=== PATIENT | female | born 1965 | race Caucasian/White ===

== ENCOUNTER → 2023-10-03 15:39 | Outpatient (REF) | payer OTHER, SELFPAY | LOC: WDC 15:39 | PROVIDERS: ATTENDING PHYSICIAN Nurse Practitioner Family | DX: Z12.31 Encounter for screening mammogram for malignant neoplasm of breast (principal) | CPT/HCPCS: 77063; 77067 ==

== ENCOUNTER → 2024-10-05 15:52 | Outpatient (REF) | payer OTHER, SELFPAY | LOC: WDC 15:52 | PROVIDERS: ATTENDING PHYSICIAN Obstetrics & Gynecology; FAMILY PHYSICIAN Family Medicine | DX: Z12.31 Encounter for screening mammogram for malignant neoplasm of breast (principal) | CPT/HCPCS: 77063; 77067 ==

== ENCOUNTER → 2024-11-30 13:18 | Outpatient (REF) | payer OTHER, SELFPAY | LOC: RAD 13:18 | PROVIDERS: ATTENDING PHYSICIAN Family Medicine | DX: R59.0 Localized enlarged lymph nodes (principal) | CPT/HCPCS: 70491; Q9967 ==

== ENCOUNTER → 2025-02-16 13:19 | Outpatient (REF) | payer OTHER, SELFPAY | LOC: WDC 13:19 | PROVIDERS: ATTENDING PHYSICIAN Obstetrics & Gynecology; FAMILY PHYSICIAN Family Medicine | DX: R92.2 Inconclusive mammogram (principal); R92.30 Dense breasts, unspecified | CPT/HCPCS: 76641 ==

== ENCOUNTER 2025-07-16 13:40 | Emergency (ER) | payer OTHER, SELFPAY ==
[2025-07-16 13:44] VITALS: BP 161/87
--- NOTE | 2025-07-16 15:38 | ED.GENMED ---
History of Present Illness
General
Chief Complaint: Chest Pain
Time Seen by Provider: 07/16/25 15:38
History of Present Illness
History of Present Illness:
FOCUSED PAST MEDICAL HISTORY
- High blood pressure
REVIEW OF OLD RECORDS
- The patient had colonoscopy in 2021
Note:
CHIEF COMPLAINT(S)
Right shoulder pain and reduced range of motion following a fall.
HISTORY OF PRESENT ILLNESS
The patient is a 59-year-old female presenting with right shoulder pain and impaired motion after a forward fall onto her shoulder. She describes falling directly onto the front of her body, resulting in soreness in her chest, ribs, and knees, with
the right arm taking the majority of the impact. The patient notes the pain radiates from the shoulder down the arm and has difficulty with certain movements. Examination reveals no obvious fracture; however, decreased range of motion into abduction
was noted. There is suspicion of either a rotator cuff injury or a biceps injury. The patient denies significant pain when pushing on the collarbone or indicative signs of a proximal humerus fracture or AC joint separation. An X-ray was performed
and appeared normal, without any obvious fractures visible. The pain seems more muscular, potentially involving the rotator cuff, which usually heals on its own.
PAST MEDICAL AND SURGICAL HISTORY
- Hypertension
- Gastroesophageal reflux disease (GERD)
REVIEW OF SYSTEMS
- Musculoskeletal: Right shoulder pain, reduced range of motion, and pain radiating down the arm.
- Respiratory: Occasional chest discomfort and soreness with breathing post-fall.
- Cardiovascular: History of hypertension, EKG shows no significant changes compared to previous.
MEDICATIONS
- Patient is taking medication for high blood pressure and [id number] ibuprofen for pain relief.
PHYSICAL EXAM
General: Alert, cooperative, no acute distress.
Skin: Warm, dry.
Head: Normocephalic, atraumatic.
Neck: Supple, trachea midline.
Eyes, Ears, Nose, Mouth, and Throat: Oral mucosa moist.
Cardiovascular: Normal peripheral perfusion, No edema.
Respiratory: Respirations non-labored.
Gastrointestinal: Abdomen nondistended.
Back: Normal range of motion.
Musculoskeletal: Decreased active range of motion in the right shoulder abduction, normal strength in other extremities. Strong radial and ulnar pulse right upper extremity, excellent distal neurologic function, no significant tenderness at the
olecranon or radial head, some tenderness to palpation at the right biceps musculature but no deformity and fairly good active range of motion
Neurological: Alert and oriented to person, place, time, and situation.
Psychiatric: Cooperative, appropriate mood & affect.
PROBLEM LIST
Acute Problems:
- Suspected right rotator cuff or biceps injury
- Musculoskeletal pain post-fall
Chronic Problems:
- Hypertension
- Gastroesophageal reflux disease (GERD)
PLAN
- Provide a sling for right shoulder support.
- Follow-up with an orthopedic physician; contact information was provided for Dr. Campa.
- Continue ibuprofen for pain management as needed.
- Monitor for any changes in symptoms or worsening pain and follow up as necessary.
DIFFERENTIAL DIAGNOSIS
The Differential Diagnosis includes, in no particular order and is not limited to:
1. Rotator cuff tear
2. Biceps tendon injury
3. AC joint sprain
4. Proximal humerus fracture
5. Clavicle fracture
6. Subacromial bursitis
7. Labral tear
8. Pectoralis muscle strain
9. Sternoclavicular joint injury
10. Neurological impingement or injury affecting shoulder function
RADIOLOGY
- X-ray right shoulder no fracture
EKG
- Sinus, nonspecific abnormality, no significant change from December 2020
UPDATE
SUMMARY OF ENCOUNTER
The patient, a 59-year-old female, presented to the emergency department with right shoulder pain and reduced range of motion following a fall. She fell forward, landing on her right shoulder, which bore the brunt of the impact, leading to suspicion
of a rotator cuff or biceps injury. An x-ray was performed, which showed no abnormalities or fractures. The patient was provided with a sling for shoulder support and was advised to take non-steroidal anti-inflammatory drugs (NSAIDs) for pain
management.
DISPOSITION
The patient was discharged with instructions to follow up with an orthopedic physician.
ASSESSMENT
Suspected right rotator cuff or biceps injury following fall.
PLAN
The patient was advised to use a sling for support and follow up with an orthopedic physician. She should continue using [id number] NSAIDs for pain management as needed. Monitor for any change in symptoms or worsening pain.
INDEPENDENT REVIEW OF LABS AND INTERPRETATION OF TESTS
My independent interpretation of the right shoulder x-ray shows no abnormalities or fractures.
PATIENT EDUCATION AND COUNSELING
The patient was informed about the suspected rotator cuff injury and advised on the importance of follow-up care with an orthopedic physician to ensure appropriate management and recovery.
FOLLOW-UP INSTRUCTIONS
Please call the office immediately to schedule a follow-up visit with an orthopedic physician.
MEDICATION RECONCILIATION
The patient is advised to continue [id number] NSAIDs such as ibuprofen for pain management.
MEDICAL DECISION MAKING
-Chronic conditions affecting care: hypertension, gastroesophageal reflux disease (GERD). Differential Diagnosis: Rotator cuff tear, Biceps tendon injury, AC joint sprain, Proximal humerus fracture, Clavicle fracture, Subacromial bursitis, Labral
tear, Pectoralis muscle strain, Sternoclavicular joint injury, Neurological impingement or injury affecting shoulder function.
-Data:
Category 1
My independent interpretation of the right shoulder x-ray indicates no abnormalities or fractures.
-Risk:
Prescription medication was prescribed: NSAIDs for pain relief.
DIAGNOSIS
Suspected rotator cuff injury (ICD-10: S46.011A).
Phy Exam
Physical Exam
Physical Exam:
See HPI
Scores
Heart Score for Chest Pain Patients
STEMI patient?: Not applicable
Course
Orders/Labs/Results
Orders:
Orders
07/16/25 13:41
EKG [Electrocardiogram (*1)] Urgent
Reason for Study: Chest Pain
EKG- Treatment ONCE
Shoulder, Right, Trauma [CR Shoulder, Trauma - Right] Urgent
Comment:
Reason For Exam: pain
07/16/25 15:55
Sling Right-Treatment ONCE
Vital Signs
Initial and Last Documented VS:
Initial Vital Signs
Temp Pulse Resp BP Pulse Ox
36.8 C 83 18 161/87 100
07/16/25 13:44 07/16/25 13:44 07/16/25 13:44 07/16/25 13:44 07/16/25 13:44
Last Documented Vital Signs
Temp Pulse Resp BP Pulse Ox
36.8 C 83 18 161/87 100
07/16/25 13:44 07/16/25 13:44 07/16/25 13:44 07/16/25 13:44 07/16/25 15:40
*Pulse Oximetry
SaO2: 100
Oxygen Mode of Delivery: Room air
Patient hypoxic: no
*Critical Care Note
Total Time (30-74mins, 75-104mins- exclusive of procedures): Not Applicable
ED Attending Note
-
Portions of this chart may have been created with voice recognition software.� Occasional wrong word or��sound alike� substitutions may have occurred due to the inherent limitations of voice recognition software.
Discharge Plan
Departure
Patient Disposition: Home (Routine Discharge)
Date of Disposition: 07/16/25
Time of Disposition: 15:53
Patient with high blood pressure during this ER visit?: Yes
Discharge Problem:
Rotator cuff injury
Instructions: Rotator cuff injury, BLOOD PRESSURE
Prescriptions:
No Action
rizatriptan 10 MG tablet,disintegrating
10 mg PO PRN PRN (Reason: migraine)
pantoprazole 40 MG tablet,delayed release (DR/EC)
40 mg PO DAILY
fluticasone propion-salmeterol [Advair Diskus] 1 EACH blister with device
1 ea IH BID
biotin 1 MG tablet
1 mg PO DAILY
Iron 65 MG Tab
65 mg PO DAILY
Referrals:
Yury Campa MD [Active, Orthopedics]
Elia Heller MD [Active, Orthopedics]
Activity Restrictions/Additional Instructions:
Since her has been to Dr. Campa, with [facility], I have given you his contact information. The on-call doctor, Dr. Heller is with [facility] orth[facility]. I recommend 3-4 rlga-[id number]-[id number] ibuprofen (Motrin) every 8 hours with food for a
few days. Return here if worse. You can also take Tylenol for pain.
Interventions
Interventions:
*Risk Screen - Suicide Last Done: 07/16/25 16:16
*General Assessment Last Done: 07/16/25 16:16
*Neglect/Abuse Screening Last Done: 07/16/25 16:16
*ED- Fall Risk Assessment Last Done: 07/16/25 16:16
*ED COVID-19 Vaccine History Last Done: 07/16/25 16:16
*ED Influenza Vaccine History Last Done: 07/16/25 16:16
*Nursing Disposition Last Done: 07/16/25 16:16
ED- Cardiac Assessment Last Done: 07/16/25 16:16
Discharge Date and Time
Discharge Date/Time: 07/16/25 16:27
Print Language: PORTUGUESE
== END 2025-07-16 16:27 | disposition home or self-care (01) ==
LOC: EMR 13:40
PROVIDERS: EMERGENCY PHYSICIAN Emergency Medicine; FAMILY PHYSICIAN Family Medicine
DX: S49.91XA Unspecified injury of right shoulder and upper arm, initial encounter (principal); W19.XXXA Unspecified fall, initial encounter; I10 Essential (primary) hypertension; K21.9 Gastro-esophageal reflux disease without esophagitis; Z79.899 Other long term (current) drug therapy
CPT/HCPCS: 99283; 73030; 93005